=== PATIENT | male | born 1990 | race Caucasian/White ===

== ENCOUNTER 2020-05-24 15:30 | Outpatient (CLI) | payer OTHER ==
--- NOTE | 2020-05-24 17:09 | MRI Report ---
PROCEDURE: Lumbar Spine W/O INDICATIONS: LOW BACK PAIN TECHNIQUE: Noncontrast sagittal T1 spin echo and T2 fast echo, sagittal STIR, axial T1 and T2 fast spin echo thr ough the lumbar spine. In cases with scoliosis, additional coronal T2 fast spin echo may be performe d. COMPARISON: None. FINDINGS: Image quality: Excellent. Alignment and Curvature: There is straightening of normal lumbar curvature. There is trace retrolist hesis of L5 on S1. Bone Marrow: Marrow is of normal overall signal. No acute vertebral body compression fractures. Spinal Cord: Conus medullaris terminates at the level L1 Visualized cord demonstrates normal signa l. There is an overall appearance of congenital spinal stenosis. Paraspinous Soft Tissues: No paravertebral masses. Discs: Severe desiccation is present at L5-S1. L1-L2: No disc bulge or foraminal narrowing. Mild spinal stenosis. L2-L3: No disc bulge or foraminal narrowing. Mild to moderate spinal stenosis. Minimal epidural li pomatosis. L3-L4: No disc bulge. Mild to moderate spinal stenosis. Mild bilateral foraminal narrowing. L4-L5: Mild disc bulge with moderate spinal stenosis. No foraminal narrowing. L5-S1: Small appearance of left posterior paracentral protrusion/extrusion causing compromise of th e left lateral recess. Overall mild to moderate spinal stenosis. No foraminal narrowing. IMPRESSION: 1. Small appearance of left posterior paracentral protrusion/extrusion with contrast is a left latera l recess at L5-S1. 2. Multilevel spinal stenosis secondary to congenital spinal stenosis. Reviewed by: Wanda Palm MD on 05/24/2020 5:08 PM PST Approved by: Wanda Palm MD on 05/24/2020 5:08 PM PST Station ID: [id number]
== END 2020-05-24 15:31 | disposition home or self-care (01) ==
LOC: DI 15:30
PROVIDERS: ATTEND Student in an Organized Health Care Education/Training Program
DX: M48.061 Spinal stenosis, lumbar region without neurogenic claudication (principal)
CPT/HCPCS: 72148

== ENCOUNTER 2023-09-14 08:00 | Outpatient (CLI) | payer OTHER ==
[2023-09-14 21:39] LABS: CHLAMYDIA TRACHOMATIS DNA NEGATIVE (NEGATIVE); NEISSERIA GONORRHOEAE DNA NEGATIVE (NEGATIVE); TRICHOMONAS VAGINALIS DNA NEGATIVE (NEGATIVE)
[2023-09-16 23:08] LABS: HCV AB Non Reactive (Non Reactive)
[2023-09-17 03:10] LABS: HSV 1 IGG TYPE SPEC <0.91 index (0.00-0.90); HSV 2 IGG TYPE SPEC <0.91 index (0.00-0.90)
[2023-09-17 03:10] LABS: RPR Non Reactive (Non Reactive)
== END 2023-09-14 23:59 | disposition home or self-care (01) ==
LOC: LAB.N 08:00
PROVIDERS: ATTEND Physician Assistant Medical
DX: Z11.3 Encounter for screening for infections with a predominantly sexual mode of transmission (principal)
CPT/HCPCS: 36415; 86592; 86695; 86696; 86803; 87491; 87591; 87661

== ENCOUNTER 2024-01-18 13:15 | Outpatient (CLI) | payer OTHER ==
[2024-01-18 21:12] LABS: CHLAMYDIA TRACHOMATIS DNA NEGATIVE (NEGATIVE); NEISSERIA GONORRHOEAE DNA NEGATIVE (NEGATIVE); TRICHOMONAS VAGINALIS DNA NEGATIVE (NEGATIVE)
== END 2024-01-18 13:30 | disposition home or self-care (01) ==
LOC: LAB.N 13:15
PROVIDERS: ATTEND Physician Assistant Medical
DX: Z11.3 Encounter for screening for infections with a predominantly sexual mode of transmission (principal)
CPT/HCPCS: 36415; 86592; 86803; 87389; 87491; 87591; 87661